=== PATIENT | female | born 1980 | race Asian ===

== ENCOUNTER 2020-09-08 12:18 | Outpatient (CLI) | payer BC, SELFPAY ==
--- NOTE | 2020-09-09 08:35 | OB.TRI.HP_ITS ---
HPI - General HPI Narrative ABDULLAHI DIAZ, is a 40 F at 29 weeks gestation who presents with decreased movement today. Patient lives out of town but seeing [facility] in [place]. Maternal Data Information ESTEBAN Calculator Estimated Delivery Date Method Current WG Current Estimate 11/23/20 Manual 29w 2d ROS Eyes Eyes: Denies blurry vision Cardiovascular Cardiovascular: Reports none; Denies chest pain at rest, chest pain with activity or dizziness Respiratory/Chest Respiratory/Chest: Denies cough or dyspnea Gastrointestinal Gastrointestinal: Reports none and other; Denies diarrhea or vomiting Genitourinary Genitourinary: Denies dysuria Musculoskeletal Musculoskeletal: Reports none Integumentary Integumentary: Reports none; Denies rash Neurologic Neurologic: Denies dizziness, headache(s) or other visual disturbances Psychiatric Psychiatric: Reports none NST FHR Rate Baby A Baseline: 140 Variability:: Moderate Accelerations:: 15 x 15 Decelerations:: None NST Reactive:: Yes FHR Category:: Category I Assessment & Plan (1) Decreased movement: QUALIFIERS: Fetus number: single or unspecified fetus Trimester: second trimester Qualified Code(s): O36.8120 - Decreased movements, second trimester, not applicable or unspecified (2) 29 weeks gestation of : PLAN: CEFM NST reactive, CAT. 1 No contractions noted Patient feeling movement upon arriving to unit Discharge home with follow up in office - PTL precautions and Kick counts review ed Dr. Browne notified
== END 2020-09-08 12:45 | disposition home or self-care (01) ==
LOC: WPOUT 12:28 → WP 12:30
PROVIDERS: Visit Provider Advanced Practice Midwife
DX: O36.8130 Decreased fetal movements, third trimester, not applicable or unspecified (principal); O09.523 Supervision of elderly multigravida, third trimester; Z3A.29 29 weeks gestation of pregnancy
CPT/HCPCS: 59025; 99218; G0378